=== PATIENT | male | born 1935 | race Caucasian/White ===

== ENCOUNTER 2018-12-24 15:00 | Emergency (ER) | payer MEDICARE, OTHER ==
[~2018-12-24] VITALS: Ht 177.8 cm; Wt 121.6 kg
[~2018-12-24 15:00] MED LIST: ACET325 PO; ALLO100 PO; AMLO10 PO; AMLO5 PO; ATOR20 PO; Alphagan P5 ML BOTHEYES; Apidra Sol100 UNIT/1 SC; Aspirin EC81 MG PO; BRIM.15SO BOTHEYES; CALC.25 PO; CITA20 PO; Colace100 MG PO; DORZOPSO BOTHEYES; INSULANPEN SC; LAVAP17G PO; LORA.5 PO; LORA1 PO; LORA2 PO; LOSA50 PO; Lasix40 MG PO; METO25 PO; OMEP20ER PO; OSEL75CA PO; Omeprazole20 M1 PO; POTA10T PO; RANI150; Tamiflu75 MG PO; Vitamin D2000 UNIT PO; Xalatan2.5 ML BOTHEYES
[2018-12-24 16:33] LABS: BASOPHILS ABSOLUTE AUTO 0.03 K/mm3 (0.00-0.23); BASOPHILS PERCENT AUTO 1 % (0-2); EOSINOPHILS ABSOLUTE AUTO 0.35 K/mm3 (0.00-0.68); EOSINOPHILS PERCENT AUTO 7 % (0-6); Hematocrit 38.5 % (37.0-53.0); Hemoglobin 12.4 g/dL (13.5-17.5); IMMATURE GRAN ABSOLUTE AUTO 0.02 K/mm3 (0.00-0.10); IMMATURE GRAN PERCENT AUTO 0 % (0-1); LYMPHOCYTES ABSOLUTE AUTO 0.88 K/mm3 (0.84-5.20); LYMPHOCYTES PERCENT AUTO 17 % (21-46); MONOCYTES ABSOLUTE AUTO 0.55 K/mm3 (0.16-1.47); MONOCYTES PERCENT AUTO 11 % (4-13); Mean Corpuscular HGB 33.1 pg (26.0-34.0); Mean Corpuscular HGB Conc 32.2 g/dL (31.5-36.5); Mean Corpuscular Volume 103 fL (80-100); Mean Platelet Volume 12.2 fL (9.1-12.4); NEUTROPHILS ABSOLUTE AUTO 3.36 K/mm3 (1.96-9.15); NEUTROPHILS PERCENT AUTO 65 % (41-73); Platelet Count 197 K/mm3 (150-400); RDW Coefficient Variation 14.8 % (11.7-14.2); RDW Standard Deviation 56.6 fL (35.1-46.3); Red Blood Cell Count 3.75 M/mm3 (4.30-5.90); White Blood Cell Count 5.19 K/mm3 (4.00-11.30)
[2018-12-24 17:00] LABS: Alanine Aminotransfer (ALT/SGP 28 U/L (12-78); Albumin, Blood 3.3 g/dL (3.4-5.0); Albumin/Globulin Ratio 0.9 (0.8-1.8); Alk Phos 53 U/L (50-136); Anion Gap 4 mmol/L (6-16); Aspartate Aminotrans (AST/SGOT 21 U/L (12-37); Bilirubin, Total 0.4 mg/dL (0.1-1.0); Blood Urea Nitrogen 28 mg/dL (8-24); Bun/Creatinine Ratio 17.3 (12.0-20.0); CO2, Blood 27 mmol/L (21-32); Calcium, Blood 8.7 mg/dL (8.5-10.1); Chloride, Blood 109 mmol/L (98-108); Creatinine, Blood 1.62 mg/dL (0.60-1.20); Globulin, Blood 3.8 g/dL (2.2-4.0); Glomerular Filtration Rate 43 (60-); Glucose, Blood 180 mg/dL (70-99); Potassium, Blood 4.3 mmol/L (3.5-5.5); Sodium, Blood 140 mmol/L (136-145); Total Protein, Blood 7.1 g/dL (6.4-8.2); Troponin I <0.015 ng/mL (0.000-0.040)
[2018-12-24] MEDS ORDERED: Cheratussin AC118 ML PO (17:53)
[2018-12-24] MEDS ORDERED: Prednisone20 MG PO (17:53)
== END 2018-12-24 18:06 | disposition home or self-care (01) ==
LOC: ER 15:00
PROVIDERS: Physician Assistant
DX: J20.9 Acute bronchitis, unspecified (principal); E11.9 Type 2 diabetes mellitus without complications; I10 Essential (primary) hypertension
CPT/HCPCS: 36415; 71046; 80053; 83880; 84484; 85025; 93005; 93010; 99283-25

== ENCOUNTER 2019-01-01 10:54 | Observation (INO) | payer MEDICARE, OTHER ==
[~2019-01-01] VITALS: Ht 177.8 cm; Wt 128.0 kg
[~2019-01-01 10:54] MED LIST changes: +Cheratussin AC118 ML PO; +Prednisone20 MG PO
[2019-01-01] MEDS ORDERED: VITAMIN D-32000 UNIT PO (11:25)
[2019-01-01] MEDS ORDERED: VITAMIN B-121000 MC2 PO (11:26)
[2019-01-01] MEDS ORDERED: METO50 PO (11:27)
[2019-01-01] MEDS ORDERED: CLON.1 PO (11:29)
[2019-01-01] MEDS ORDERED: NOVOLOG FL100 UNIT/1 SC (11:42)
[2019-01-01] MEDS ORDERED: BASAGLAR K100 UNIT/1 SC (11:43)
[2019-01-01 12:48] LABS: BASOPHILS ABSOLUTE AUTO 0.02 K/mm3 (0.00-0.23); BASOPHILS PERCENT AUTO 0 % (0-2); EOSINOPHILS ABSOLUTE AUTO 0.12 K/mm3 (0.00-0.68); EOSINOPHILS PERCENT AUTO 1 % (0-6); Hematocrit 40.3 % (37.0-53.0); Hemoglobin 13.3 g/dL (13.5-17.5); IMMATURE GRAN ABSOLUTE AUTO 0.05 K/mm3 (0.00-0.10); IMMATURE GRAN PERCENT AUTO 1 % (0-1); LYMPHOCYTES ABSOLUTE AUTO 0.93 K/mm3 (0.84-5.20); LYMPHOCYTES PERCENT AUTO 11 % (21-46); MONOCYTES PERCENT AUTO 8 % (4-13); Mean Corpuscular HGB 32.5 pg (26.0-34.0); Mean Platelet Volume 12.5 fL (9.1-12.4); NEUTROPHILS ABSOLUTE AUTO 6.57 K/mm3 (1.96-9.15); NEUTROPHILS PERCENT AUTO 78 % (41-73); Platelet Count 201 K/mm3 (150-400); RDW Coefficient Variation 14.4 % (11.7-14.2); RDW Standard Deviation 52.1 fL (35.1-46.3); Red Blood Cell Count 4.09 M/mm3 (4.30-5.90); White Blood Cell Count 8.39 K/mm3 (4.00-11.30)
[2019-01-01 12:52] LABS: Mean Corpuscular Volume 99 fL (80-100)
[2019-01-01 13:02] LABS: Calcium, Blood 8.3 mg/dL (8.5-10.1); Creatinine, Blood 1.85 mg/dL (0.60-1.20); Potassium, Blood 3.8 mmol/L (3.5-5.5); Troponin I 0.106 ng/mL (0.000-0.040)
[2019-01-01 13:26] LABS: Source, Urine Clean Catch
[2019-01-01 13:37] LABS: Bilirubin, Urine Neg (Neg); Blood, Urine 1+ (Neg); Glucose Qualitative, Urine Neg (Neg); Ketones, Urine Neg (Neg); Leukocyte Esterase, Urine Neg (Neg); Nitrite, Urine Neg (Neg); Protein, Urine 1+ (Neg); Urobilinogen, Urine NORM (Normal)
[2019-01-01 13:43] LABS: Appearance, Urine Clear (Clear); Color, Urine Yellow (P-Yellow)
[2019-01-01 13:44] LABS: Bacteria Few /hpf; Squamous Epithelial Cells Few /hpf (Few); White Blood Cells, Urine 0-2 /hpf (0-5)
[2019-01-01 15:32] LABS: Uric Acid, Blood 5.6 mg/dL (3.5-7.2)
[2019-01-02 01:41] LABS: BASOPHILS ABSOLUTE AUTO 0.02 K/mm3 (0.00-0.23); BASOPHILS PERCENT AUTO 0 % (0-2); EOSINOPHILS PERCENT AUTO 3 % (0-6); Hematocrit 35.1 % (37.0-53.0); Hemoglobin 11.6 g/dL (13.5-17.5); IMMATURE GRAN ABSOLUTE AUTO 0.03 K/mm3 (0.00-0.10); IMMATURE GRAN PERCENT AUTO 1 % (0-1); LYMPHOCYTES ABSOLUTE AUTO 1.34 K/mm3 (0.84-5.20); LYMPHOCYTES PERCENT AUTO 21 % (21-46); MONOCYTES ABSOLUTE AUTO 0.63 K/mm3 (0.16-1.47); MONOCYTES PERCENT AUTO 10 % (4-13); Mean Corpuscular HGB 33.1 pg (26.0-34.0); Mean Corpuscular Volume 100 fL (80-100); Mean Platelet Volume 12.1 fL (9.1-12.4); NEUTROPHILS ABSOLUTE AUTO 4.19 K/mm3 (1.96-9.15); NEUTROPHILS PERCENT AUTO 65 % (41-73); Platelet Count 180 K/mm3 (150-400); RDW Coefficient Variation 14.4 % (11.7-14.2); RDW Standard Deviation 52.4 fL (35.1-46.3); White Blood Cell Count 6.41 K/mm3 (4.00-11.30)
[2019-01-02 02:00] LABS: Albumin, Blood 2.8 g/dL (3.4-5.0); Albumin/Globulin Ratio 0.8 (0.8-1.8); Bilirubin, Total 0.8 mg/dL (0.1-1.0); Bun/Creatinine Ratio 19.5 (12.0-20.0); Creatinine, Blood 1.85 mg/dL (0.60-1.20); Globulin, Blood 3.3 g/dL (2.2-4.0); Potassium, Blood 3.8 mmol/L (3.5-5.5); Total Protein, Blood 6.1 g/dL (6.4-8.2)
--- NOTE | 2019-01-02 04:21 | NUR ---
PT WAS ADMITTED PREVIOUS SHIFT POST FALL, SEE DOC FLOW SHEETS. ALERT AND ORIENTED TO QUESTIOINS ASKED THIS SHIFT. IVF OF NS BOLUS INFUSED. VSS. MONITORING LABS - TROP LEVEL ELEVATED. MED TELE SINUS RHYTHM WITH PVC'S. HAS BEEN RESTING QUIETLY WITH FEW INTERRUPTIONS. ASYMPTOMATIC. CALL LIGHT IN REACH.
--- NOTE | 2019-01-02 05:05 | NUR ---
NOTED TROP LEVELS TRENDING UPWARD, CALL PLACED TO MD STEVE ORDERED TO WATCH. PT ASYMPTOMATIC.
--- NOTE | 2019-01-02 13:04 | NUR ---
1305 IV REMOVED FOR DISCHARGE. MEDS CALLED INTO PHARMACY OF CHOICE. DISCHARGE INSTRUCTIONS WENT OVER WITH FAMILY AND PT. PATIENT REMAINS SOMEWHAT CONFUSED AND FAMILY AND NURSE CONCERNED WITH PATIENT STILL DRIVING. FAMILY STATED THEY ARE GOING TO TALK WITH PCP REGARDING PTS INCREASED CONFUSION AND CHANGE IN MENTATION. PATIENT ABLE TO AMBULATE WITH USE OF CANE. FAMILY TO TAKE PATIENT HOME. PATIENT TO DISCHARGE AFTER PT.
--- NOTE | 2019-01-02 15:23 | NUR ---
1520 PATIENT ABLE TO BE WHEELED OUT IN BY STAFF. SON HAD TO GO TO [facility]POINT[facility] PRIOR TO COMING TO NURSE PRACTITIONER HOME ASSESSMENTS PATIENT. PAPER WORK WAS DONE PRIOR TO. PATIENT STAYED IN ROOM WHILE WAITING FOR RIDE TO RETURN.
== END 2019-01-02 15:21 | disposition home or self-care (01) ==
LOC: ER 10:54 → MEDS 10:55
PROVIDERS: Emergency Medicine; Nurse Practitioner Acute Care; ADMIT Internal Medicine
DX: G92 Toxic encephalopathy (principal); R79.89 Other specified abnormal findings of blood chemistry; I12.9 Hypertensive chronic kidney disease with stage 1 through stage 4 chronic kidney disease, or unspecified chronic kidney disease; E11.22 Type 2 diabetes mellitus with diabetic chronic kidney disease; N18.3 Chronic kidney disease, stage 3 (moderate); F41.1 Generalized anxiety disorder; J40 Bronchitis, not specified as acute or chronic; Z79.899 Other long term (current) drug therapy; Z79.82 Long term (current) use of aspirin; Z88.8 Allergy status to other drugs, medicaments and biological substances
CPT/HCPCS: 36415; 70450; 71046; 73080; 80048; 80053; 81001; 82550; 82947; 83735; 83880; 84100; 84484; 84550; 85025; 93005; 93010; 93306; 96372; 96372-59; 97162; 97530; 99285-25; G0378; J1644; J1815; J7030

== ENCOUNTER 2020-08-04 21:55 | Emergency (ER) | payer MEDICARE, OTHER ==
[~2020-08-04] VITALS: Ht 175.3 cm; Wt 121.6 kg
[~2020-08-04 21:55] MED LIST changes: +BASAGLAR K100 UNIT/1 SC; +CLON.1 PO; +METO50 PO; +NOVOLOG FL100 UNIT/1 SC; +VITAMIN B-121000 MC2 PO; +VITAMIN D-32000 UNIT PO
[2020-08-04] MEDS ORDERED: VITAMIN D325 MC3 PO (22:25)
[2020-08-04] MEDS ORDERED: CLON.1 PO (22:26)
[2020-08-04] MEDS ORDERED: LORA.5 PO (22:27)
[2020-08-04] MEDS ORDERED: COENZYME Q10100 MG PO (22:27)
[2020-08-04] MEDS ORDERED: FURO80 PO (22:28)
[2020-08-04] MEDS ORDERED: NOVOLOG FL100 UNIT/3 SC (22:29)
[2020-08-04] MEDS ORDERED: BASAGLAR K100 UNIT/1 SC (22:29)
[2020-08-04 22:44] LABS: BASOPHILS ABSOLUTE AUTO 0.02 K/mm3 (0.00-0.23); BASOPHILS PERCENT AUTO 0 % (0-2); EOSINOPHILS ABSOLUTE AUTO 0.19 K/mm3 (0.00-0.68); EOSINOPHILS PERCENT AUTO 4 % (0-6); Hematocrit 37.2 % (37.0-53.0); Hemoglobin 12.7 g/dL (13.5-17.5); IMMATURE GRAN ABSOLUTE AUTO 0.02 K/mm3 (0.00-0.10); IMMATURE GRAN PERCENT AUTO 0 % (0-1); LYMPHOCYTES ABSOLUTE AUTO 0.96 K/mm3 (0.84-5.20); LYMPHOCYTES PERCENT AUTO 19 % (21-46); MONOCYTES ABSOLUTE AUTO 0.36 K/mm3 (0.16-1.47); MONOCYTES PERCENT AUTO 7 % (4-13); Mean Corpuscular HGB 32.8 pg (26.0-34.0); Mean Corpuscular HGB Conc 34.1 g/dL (31.5-36.5); Mean Corpuscular Volume 96 fL (80-100); Mean Platelet Volume 12.9 fL (9.1-12.4); NEUTROPHILS ABSOLUTE AUTO 3.47 K/mm3 (1.96-9.15); NEUTROPHILS PERCENT AUTO 69 % (41-73); Platelet Count 184 K/mm3 (150-400); RDW Coefficient Variation 13.4 % (11.7-14.2); RDW Standard Deviation 47.4 fL (35.1-46.3); Red Blood Cell Count 3.87 M/mm3 (4.30-5.90); White Blood Cell Count 5.02 K/mm3 (4.00-11.30)
[2020-08-04 23:03] LABS: Base Excess Venous 6.2 mmol/L; Bicarbonate Venous 28.9 mmol/L (24.0-30.0); PO2 Venous 93.1 mmHg (38-42); pH Blood Venous 7.39 (7.34-7.37)
[2020-08-04 23:07] LABS: Albumin, Blood 2.9 g/dL (3.4-5.0); Albumin/Globulin Ratio 0.9 (0.8-1.8); Beta-hydroxybutyrate 3.6 mg/dL (0.2-2.8); Bilirubin, Total 0.5 mg/dL (0.1-1.0); Bun/Creatinine Ratio 11.3 (12.0-20.0); Calcium, Blood 8.1 mg/dL (8.5-10.1); Creatinine, Blood 2.21 mg/dL (0.60-1.20); Globulin, Blood 3.3 g/dL (2.2-4.0); Potassium, Blood 3.6 mmol/L (3.5-5.5); Total Protein, Blood 6.2 g/dL (6.4-8.2)
== END 2020-08-05 02:11 | disposition home or self-care (01) ==
LOC: ER 21:55
PROVIDERS: Emergency Medicine
DX: E11.65 Type 2 diabetes mellitus with hyperglycemia (principal); E11.22 Type 2 diabetes mellitus with diabetic chronic kidney disease; N17.9 Acute kidney failure, unspecified; I12.9 Hypertensive chronic kidney disease with stage 1 through stage 4 chronic kidney disease, or unspecified chronic kidney disease; N18.30 Chronic kidney disease, stage 3 unspecified; K21.9 Gastro-esophageal reflux disease without esophagitis; Z79.4 Long term (current) use of insulin; Z79.899 Other long term (current) drug therapy
CPT/HCPCS: 80053; 82010; 82607; 82803; 82947; 84443; 85025; 93005; 93010; 99285-25; J1815; J7030

== ENCOUNTER → 2020-08-14 | Outpatient (CLI) | payer MEDICARE, OTHER ==
[~2020-08-14] MED LIST changes: +COENZYME Q10100 MG PO; +FURO80 PO; +NOVOLOG FL100 UNIT/3 SC; +VITAMIN D325 MC3 PO
== END ==
LOC: LAB EV 15:18 → LAB SHORT 15:18
DX: N39.0 Urinary tract infection, site not specified (principal)
CPT/HCPCS: 87077; 87086; 87186

== ENCOUNTER → 2021-04-01 | Outpatient (CLI) | payer MEDICARE, OTHER ==
[~2021-04-01] MED LIST changes: +ABILIFY MYCITE2 M2 PO; +ALPHAGAN P5 ML BOTHEYES; +CIPR500 PO; +FURO40 PO; -FURO80 PO; +LATA.005SO BOTHEYES; +NYSTATIN15 GM TOP; +ONDA4ODT MM
[2021-04-01 11:15] LABS: Appearance, Urine Clear (Clear); Bilirubin, Urine Neg (Neg); Blood, Urine Neg (Neg); Color, Urine Yellow (P-Yellow); Glucose Qualitative, Urine Neg (Neg); Ketones, Urine Neg (Neg); Leukocyte Esterase, Urine Neg (Neg); Nitrite, Urine Neg (Neg); Protein, Urine 2+ (Neg); Urobilinogen, Urine NORM (Normal); pH, Urine 6.5 (5.0-8.0)
[2021-04-01 11:43] LABS: Bacteria Rare /hpf; Red Blood Cells, Urine 0-2 /hpf (0-2); Squamous Epithelial Cells Rare /hpf (Few); White Blood Cells, Urine 0-2 /hpf (0-5)
== END | disposition home or self-care (01) ==
LOC: LAB SHORT 10:11
PROVIDERS: Family Medicine
DX: N39.0 Urinary tract infection, site not specified (principal)
CPT/HCPCS: 81001

== ENCOUNTER 2021-12-31 09:04 | Emergency (ER) | payer MEDICARE, OTHER ==
[~2021-12-31] VITALS: Ht 170.2 cm; Wt 117.9 kg
[~2021-12-31 09:04] MED LIST changes: -ABILIFY MYCITE2 M2 PO; -ALPHAGAN P5 ML BOTHEYES; -CIPR500 PO; -LATA.005SO BOTHEYES; -NYSTATIN15 GM TOP; -ONDA4ODT MM
[2021-12-31] MEDS ORDERED: ABILIFY MYCITE2 M2 PO (09:25)
[2021-12-31] MEDS ORDERED: COENZYME Q10100 MG PO ×2 (09:26→21:47)
[2021-12-31 10:32] LABS: BASOPHILS ABSOLUTE AUTO 0.02 K/mm3 (0.00-0.23); BASOPHILS PERCENT AUTO 0 % (0-2); EOSINOPHILS PERCENT AUTO 3 % (0-6); Hematocrit 47.6 % (37.0-53.0); Hemoglobin 15.6 g/dL (13.5-17.5); IMMATURE GRAN ABSOLUTE AUTO 0.04 K/mm3 (0.00-0.10); IMMATURE GRAN PERCENT AUTO 0 % (0-1); LYMPHOCYTES ABSOLUTE AUTO 0.48 K/mm3 (0.84-5.20); LYMPHOCYTES PERCENT AUTO 4 % (21-46); MONOCYTES ABSOLUTE AUTO 0.62 K/mm3 (0.16-1.47); MONOCYTES PERCENT AUTO 6 % (4-13); Mean Corpuscular HGB 31.8 pg (26.0-34.0); Mean Corpuscular HGB Conc 32.8 g/dL (31.5-36.5); Mean Corpuscular Volume 97 fL (80-100); Mean Platelet Volume 11.2 fL (9.1-12.4); NEUTROPHILS ABSOLUTE AUTO 9.49 K/mm3 (1.96-9.15); NEUTROPHILS PERCENT AUTO 87 % (41-73); Platelet Count 296 K/mm3 (150-400); RDW Coefficient Variation 13.5 % (11.7-14.2); RDW Standard Deviation 48.6 fL (35.1-46.3); White Blood Cell Count 10.95 K/mm3 (4.00-11.30)
[2021-12-31 10:54] LABS: Albumin, Blood 3.5 g/dL (3.4-5.0); Albumin/Globulin Ratio 0.7 (0.8-1.8); Bilirubin, Total 0.6 mg/dL (0.1-1.0); Creatinine, Blood 1.58 mg/dL (0.60-1.20); Globulin, Blood 4.8 g/dL (2.2-4.0); Potassium, Blood 4.6 mmol/L (3.5-5.5); Total Protein, Blood 8.3 g/dL (6.4-8.2)
[2021-12-31] MEDS ORDERED: ONDA4ODT MM (11:41)
[2021-12-31] MEDS ORDERED: LATA.005SO BOTHEYES (21:29)
[2021-12-31] MEDS ORDERED: NYSTATIN15 GM TOP (21:31)
[2021-12-31] MEDS ORDERED: ALPHAGAN P5 ML BOTHEYES (21:32)
[2021-12-31] MEDS ORDERED: DORZOPSO BOTHEYES (21:33)
[2021-12-31] MEDS ORDERED: POTA10T PO (21:36)
[2021-12-31] MEDS ORDERED: INSULANPEN SC (21:37)
[2021-12-31] MEDS ORDERED: CIPR500 PO (21:50)
== END 2021-12-31 12:30 | disposition home or self-care (01) ==
LOC: ER 09:04
PROVIDERS: Physician Assistant
DX: R11.10 Vomiting, unspecified (principal); I12.9 Hypertensive chronic kidney disease with stage 1 through stage 4 chronic kidney disease, or unspecified chronic kidney disease; E11.22 Type 2 diabetes mellitus with diabetic chronic kidney disease; N18.30 Chronic kidney disease, stage 3 unspecified; K21.9 Gastro-esophageal reflux disease without esophagitis; Z79.4 Long term (current) use of insulin; Z88.5 Allergy status to narcotic agent; Z79.899 Other long term (current) drug therapy; Z79.82 Long term (current) use of aspirin
CPT/HCPCS: 36415; 71045; 80053; 83690; 85025; 93005; 93010; J2405

== ENCOUNTER 2021-12-31 16:36 | Emergency (ER) | payer MEDICARE, OTHER ==
[~2021-12-31] VITALS: Ht 177.8 cm; Wt 131.5 kg
[~2021-12-31 16:36] MED LIST changes: +ABILIFY MYCITE2 M2 PO; +ONDA4ODT MM
[2021-12-31 18:41] LABS: BASOPHILS ABSOLUTE AUTO 0.02 K/mm3 (0.00-0.23); BASOPHILS PERCENT AUTO 0 % (0-2); EOSINOPHILS ABSOLUTE AUTO 0.03 K/mm3 (0.00-0.68); EOSINOPHILS PERCENT AUTO 0 % (0-6); Hematocrit 43.9 % (37.0-53.0); Hemoglobin 14.6 g/dL (13.5-17.5); IMMATURE GRAN ABSOLUTE AUTO 0.04 K/mm3 (0.00-0.10); IMMATURE GRAN PERCENT AUTO 0 % (0-1); LYMPHOCYTES PERCENT AUTO 3 % (21-46); MONOCYTES ABSOLUTE AUTO 0.28 K/mm3 (0.16-1.47); MONOCYTES PERCENT AUTO 3 % (4-13); Mean Corpuscular HGB 32.4 pg (26.0-34.0); Mean Corpuscular HGB Conc 33.3 g/dL (31.5-36.5); Mean Corpuscular Volume 97 fL (80-100); Mean Platelet Volume 11.5 fL (9.1-12.4); NEUTROPHILS ABSOLUTE AUTO 9.42 K/mm3 (1.96-9.15); NEUTROPHILS PERCENT AUTO 93 % (41-73); Platelet Count 279 K/mm3 (150-400); RDW Coefficient Variation 13.9 % (11.7-14.2); RDW Standard Deviation 50.2 fL (35.1-46.3); Red Blood Cell Count 4.51 M/mm3 (4.30-5.90); White Blood Cell Count 10.09 K/mm3 (4.00-11.30)
[2021-12-31 18:55] LABS: Albumin, Blood 3.3 g/dL (3.4-5.0); Albumin/Globulin Ratio 0.7 (0.8-1.8); Bilirubin, Total 0.6 mg/dL (0.1-1.0); Bun/Creatinine Ratio 18.8 (12.0-20.0); Calcium, Blood 8.7 mg/dL (8.5-10.1); Creatinine, Blood 1.76 mg/dL (0.60-1.20); Globulin, Blood 4.5 g/dL (2.2-4.0); Potassium, Blood 4.6 mmol/L (3.5-5.5); Total Protein, Blood 7.8 g/dL (6.4-8.2)
[2021-12-31] MEDS ORDERED: LATA.005SO BOTHEYES (21:29)
[2021-12-31] MEDS ORDERED: NYSTATIN15 GM TOP (21:31)
[2021-12-31] MEDS ORDERED: ALPHAGAN P5 ML BOTHEYES (21:32)
[2021-12-31] MEDS ORDERED: DORZOPSO BOTHEYES (21:33)
[2021-12-31] MEDS ORDERED: POTA10T PO (21:36)
[2021-12-31] MEDS ORDERED: INSULANPEN SC (21:37)
[2021-12-31] MEDS ORDERED: COENZYME Q10100 MG PO (21:47)
[2021-12-31] MEDS ORDERED: CIPR500 PO (21:50)
== END 2022-01-01 00:06 | disposition home or self-care (01) ==
LOC: ER 16:36
PROVIDERS: Emergency Medicine
DX: R11.10 Vomiting, unspecified (principal); K59.00 Constipation, unspecified; F03.90 Unspecified dementia, unspecified severity, without behavioral disturbance, psychotic disturbance, mood disturbance, and anxiety; I12.9 Hypertensive chronic kidney disease with stage 1 through stage 4 chronic kidney disease, or unspecified chronic kidney disease; E11.22 Type 2 diabetes mellitus with diabetic chronic kidney disease; N18.30 Chronic kidney disease, stage 3 unspecified; Z79.4 Long term (current) use of insulin
CPT/HCPCS: 36415; 70491; 74177; 80053; 83605; 83880; 84484; 85025; 96365-59; 99284-25; J0780; J3475; J7030; Q9967

== ENCOUNTER 2022-01-29 11:13 | Emergency (ER) | payer MEDICARE, OTHER ==
[~2022-01-29] VITALS: Ht 177.8 cm; Wt 102.1 kg
[~2022-01-29 11:13] MED LIST changes: +ALPHAGAN P5 ML BOTHEYES; +CIPR500 PO; +LATA.005SO BOTHEYES; +NYSTATIN15 GM TOP
[2022-01-29 11:40] LABS: BASOPHILS ABSOLUTE AUTO 0.03 K/mm3 (0.00-0.23); BASOPHILS PERCENT AUTO 1 % (0-2); EOSINOPHILS ABSOLUTE AUTO 0.32 K/mm3 (0.00-0.68); EOSINOPHILS PERCENT AUTO 5 % (0-6); Hematocrit 39.2 % (37.0-53.0); Hemoglobin 13.2 g/dL (13.5-17.5); IMMATURE GRAN ABSOLUTE AUTO 0.02 K/mm3 (0.00-0.10); IMMATURE GRAN PERCENT AUTO 0 % (0-1); LYMPHOCYTES ABSOLUTE AUTO 1.28 K/mm3 (0.84-5.20); LYMPHOCYTES PERCENT AUTO 21 % (21-46); MONOCYTES ABSOLUTE AUTO 0.56 K/mm3 (0.16-1.47); MONOCYTES PERCENT AUTO 9 % (4-13); Mean Corpuscular HGB 32.4 pg (26.0-34.0); Mean Corpuscular HGB Conc 33.7 g/dL (31.5-36.5); Mean Corpuscular Volume 96 fL (80-100); Mean Platelet Volume 11.3 fL (9.1-12.4); NEUTROPHILS ABSOLUTE AUTO 4.02 K/mm3 (1.96-9.15); NEUTROPHILS PERCENT AUTO 65 % (41-73); Platelet Count 197 K/mm3 (150-400); RDW Standard Deviation 49.6 fL (35.1-46.3); Red Blood Cell Count 4.08 M/mm3 (4.30-5.90); White Blood Cell Count 6.23 K/mm3 (4.00-11.30)
[2022-01-29 12:03] LABS: Albumin, Blood 3.2 g/dL (3.4-5.0); Albumin/Globulin Ratio 0.8 (0.8-1.8); Bilirubin, Total 0.7 mg/dL (0.1-1.0); Bun/Creatinine Ratio 16.9 (12.0-20.0); Calcium, Blood 8.9 mg/dL (8.5-10.1); Creatinine, Blood 1.66 mg/dL (0.60-1.20); Globulin, Blood 4.2 g/dL (2.2-4.0); Potassium, Blood 3.8 mmol/L (3.5-5.5); Total Protein, Blood 7.4 g/dL (6.4-8.2)
== END 2022-01-29 15:45 | disposition home or self-care (01) ==
LOC: ER 11:13
PROVIDERS: Emergency Medicine
DX: E11.65 Type 2 diabetes mellitus with hyperglycemia (principal); I10 Essential (primary) hypertension; Z96.643 Presence of artificial hip joint, bilateral
CPT/HCPCS: 80053; 82947; 85025

== ENCOUNTER → 2022-02-03 | Outpatient (CLI) | payer MEDICARE, OTHER ==
[2022-02-03 10:56] LABS: Appearance, Urine Clear (Clear); Bilirubin, Urine Neg (Neg); Blood, Urine 1+ (Neg); Color, Urine Yellow (P-Yellow); Glucose Qualitative, Urine 2+ (Neg); Ketones, Urine Neg (Neg); Leukocyte Esterase, Urine Neg (Neg); Nitrite, Urine Neg (Neg); Protein, Urine 2+ (Neg); Specific Gravity, Urine 1.015 (1.003-1.022); Urobilinogen, Urine NORM (Normal); pH, Urine 6.5 (5.0-8.0)
[2022-02-03 11:37] LABS: Bacteria Rare /hpf; Red Blood Cells, Urine 0-2 /hpf (0-2); Squamous Epithelial Cells Rare /hpf (Few); White Blood Cells, Urine 0-2 /hpf (0-5)
[2022-02-03 11:38] LABS: Hyaline Casts 0-2 /lpf (0-2)
== END | disposition home or self-care (01) ==
LOC: LAB SHORT 09:00 → LAB 09:00
PROVIDERS: Family Medicine
DX: N39.0 Urinary tract infection, site not specified (principal)
CPT/HCPCS: 81001

== ENCOUNTER 2022-03-08 19:51 | Inpatient (IN) | payer MEDICARE, OTHER ==
[~2022-03-08] VITALS: Ht 177.8 cm; Wt 120.6 kg
[2022-03-08 20:46] LABS: BASOPHILS ABSOLUTE AUTO 0.03 K/mm3 (0.00-0.23); BASOPHILS PERCENT AUTO 0 % (0-2); EOSINOPHILS PERCENT AUTO 0 % (0-6); Hematocrit 40.2 % (37.0-53.0); Hemoglobin 13.1 g/dL (13.5-17.5); IMMATURE GRAN ABSOLUTE AUTO 0.02 K/mm3 (0.00-0.10); IMMATURE GRAN PERCENT AUTO 0 % (0-1); LYMPHOCYTES ABSOLUTE AUTO 0.63 K/mm3 (0.84-5.20); LYMPHOCYTES PERCENT AUTO 9 % (21-46); MONOCYTES ABSOLUTE AUTO 0.68 K/mm3 (0.16-1.47); MONOCYTES PERCENT AUTO 10 % (4-13); Mean Corpuscular HGB 31.9 pg (26.0-34.0); Mean Corpuscular HGB Conc 32.6 g/dL (31.5-36.5); Mean Corpuscular Volume 98 fL (80-100); Mean Platelet Volume 11.3 fL (9.1-12.4); NEUTROPHILS ABSOLUTE AUTO 5.38 K/mm3 (1.96-9.15); NEUTROPHILS PERCENT AUTO 80 % (41-73); Platelet Count 222 K/mm3 (150-400); RDW Coefficient Variation 14.7 % (11.7-14.2); RDW Standard Deviation 53.6 fL (35.1-46.3); Red Blood Cell Count 4.11 M/mm3 (4.30-5.90); White Blood Cell Count 6.74 K/mm3 (4.00-11.30)
[2022-03-08 21:07] LABS: Albumin, Blood 3.1 g/dL (3.4-5.0); Albumin/Globulin Ratio 0.7 (0.8-1.8); Bilirubin, Total 0.6 mg/dL (0.1-1.0); Bun/Creatinine Ratio 17.1 (12.0-20.0); Calcium, Blood 8.6 mg/dL (8.5-10.1); Creatinine, Blood 1.64 mg/dL (0.60-1.20); Globulin, Blood 4.2 g/dL (2.2-4.0); Potassium, Blood 3.7 mmol/L (3.5-5.5); Total Protein, Blood 7.3 g/dL (6.4-8.2)
[2022-03-08 21:23] LABS: Influenza B, PCR NEGATIVE (NEGATIVE); Resp Syncytial Virus, PCR NEGATIVE (NEGATIVE); SARS-Cov-2 (COVID-19) PCR, MMC NEGATIVE (NEGATIVE)
[2022-03-08 22:21] LABS: Influenza A, PCR POSITIVE (NEGATIVE)
[2022-03-08 23:43] LABS: Magnesium, Blood 2.2 mg/dL (1.6-2.4)
[2022-03-09 06:34] LABS: Hematocrit 39.5 % (37.0-53.0); Mean Corpuscular HGB 32.2 pg (26.0-34.0); Mean Corpuscular HGB Conc 32.9 g/dL (31.5-36.5); Mean Corpuscular Volume 98 fL (80-100); Mean Platelet Volume 11.7 fL (9.1-12.4); Platelet Count 211 K/mm3 (150-400); RDW Coefficient Variation 14.9 % (11.7-14.2); RDW Standard Deviation 54.2 fL (35.1-46.3); Red Blood Cell Count 4.04 M/mm3 (4.30-5.90); White Blood Cell Count 8.57 K/mm3 (4.00-11.30)
--- NOTE | 2022-03-09 06:46 | NUR ---
SHIFT SUMMARY *NOTE IS LATE DUE TO DOWNTIME* RECEIVED PT FROM ER TO PCU 20 @ 0330 THIS AM. PT WAS FAILRY LETHARGIC, BUT RESPONDS TO BOTH VERBAL AND TACTILE STIMULI. ORIENTATED TO SELF, BUT DOES NOT KNOW DATE, TIME, OR WHER HE IS. MAINTAINS SPO2 >90% ON 3L VIA NC. DESATS VERY QUICKLY WITH ANY SORT OF MOVEMENT OR WHEN LAYING FLAT. CARIDIAC CALL, AFIB WITH A RATE OF 110-130'S WITH CARDIZEM RUNNING ORDERD PER EMAR. NO CP OR PRESSURE REPORTED BY THE PT. BP STABLE. PT IS INCONITENT OF URINE, BUT WITH LITTLE OUTPUT THIS SHIFT. NADN, VSS T/O THE SHIFT
[2022-03-09 07:16] LABS: Albumin, Blood 2.8 g/dL (3.4-5.0); Albumin/Globulin Ratio 0.7 (0.8-1.8); Bilirubin, Total 0.5 mg/dL (0.1-1.0); Bun/Creatinine Ratio 19.4 (12.0-20.0); Calcium, Blood 8.3 mg/dL (8.5-10.1); Creatinine, Blood 1.65 mg/dL (0.60-1.20); Globulin, Blood 4.1 g/dL (2.2-4.0); Potassium, Blood 4.2 mmol/L (3.5-5.5); Total Protein, Blood 6.9 g/dL (6.4-8.2)
[2022-03-09 07:39] LABS: BAND PERCENT MAN 8 % (0-8); BASOPHILS PERCENT MAN 0 % (0-2); EOSINOPHILS PERCENT MAN 0 % (0-6); LYMPHOCYTES ABSOLUTE MAN 0.42 K/mm3 (0.84-5.20); LYMPHOCYTES PERCENT MAN 5 % (21-46); MONOCYTES ABSOLUTE MAN 0.34 K/mm3 (0.16-1.47); MONOCYTES PERCENT MAN 4 % (4-13); NEUTROPHILS ABSOLUTE MAN 7.79 K/mm3 (1.96-9.15); SEG NEUTROPHILS PERCENT MAN 83 % (41-73); TOTAL CELLS COUNTED 100
[2022-03-09] MEDS ORDERED: NOVOLOG FL100 UNIT/3 SC (10:11)
[2022-03-09] MEDS ORDERED: MIRALAX17 GM PO (10:15)
[2022-03-09] MEDS ORDERED: Amlodipine Bes2.5 MG PO (10:17)
[2022-03-09] MEDS ORDERED: ACET325 PO (10:18)
[2022-03-09] MEDS ORDERED: BISA10S PR (10:19)
[2022-03-09] MEDS ORDERED: FURO40 PO (10:49)
[2022-03-09 11:31] LABS: Source, Urine Straight Cath
[2022-03-09 11:54] LABS: Appearance, Urine Clear (Clear); Bilirubin, Urine Neg (Neg); Blood, Urine 3+ (Neg); Color, Urine Yellow (P-Yellow); Glucose Qualitative, Urine 1+ (Neg); Ketones, Urine 2+ (Neg); Leukocyte Esterase, Urine Neg (Neg); Nitrite, Urine Neg (Neg); Protein, Urine 3+ (Neg); Urobilinogen, Urine NORM (Normal)
[2022-03-09 12:23] LABS: White Blood Cells, Urine 0-2 /hpf (0-5)
[2022-03-09 12:24] LABS: Squamous Epithelial Cells Not Seen /hpf (Few)
[2022-03-09 12:25] LABS: Bacteria Many /hpf; Mucus Light (0-Heavy)
--- NOTE | 2022-03-09 12:43 | NUR ---
AM NOTE: PATIENT WAKES TO VERBAL/TOUCH. ABLE TO TELL ME HIS NAME AND . DISCUSSES FAMILY AND TALKS ABOUT ALF. NOT AWARE OF CURRENT SITUATION OR PLACE. DENIES N/T. FOLLOWING COMMANDS. OVERALL WEAK. PERRLA. SPEECH THERAPY IN, SEE ORDERS. ON 3L NASAL CANNULA SATING MID-HIGH 90'S. LUNGS SOUNDING COARSE. FREQUENT DRY COUGH. INTERMIT WHEEZING WITH MOVEMENTS AND TALKING. BREATHING TREATMENTS NEEDED. TELE SHOWING AFIB WITH HR 110-140'S. BP STABLE. CARDIZEM DRIP INFUSING. UPON START OF SHIFT CARDIZEM DRIP INFUSING AT 20 MG/HR. PPP. DENIES CHEST PAIN/PRESSURE/PALPITATIONS. 6 AND 5 BEAT RUN OF VTACH THIS AM, DR. PATRICIO NOTIFIED. MED REC COMPLETED AND ACCURATE PER [facility] REC[facility]DS. SEE FAXED MED REC IN CHART. DR. PATRICIO NOTIFIED OF COMPLETED MED REC. PO METORPOLOL GIVEN THIS AM. EATING WNL PER SPEECH THERAPY ORDERS. MEDS CRUSHED IN APPLESAUCE. LOPEZ CATH PLACED AND DRAINING CLEAR/YELLOW URINE TO GRAVITY. SLIGHTLY SWOLLEN SCROTUM. RED ABDOMINAL FOLDS, CLEANED AND POWDER APPLIED. DATA LEAD IN TO ASSESS SKIN. STAGE 1 PERSSURE ULCER ON COCCYX/BILATERAL GLUTEAL FOLDS. Q2 TURNING IN PLACE. SEE CHART FOR PICTURES BY WOUND RN. NS INFUSING X1 BAG. ORAL CARE Q4. ACHS BLOOD SUGARS. CALL PLACED TO LORENZO, PT DAUGHTER AND GIVEN UPDATE. PER LORENZO PATIENT HAS DEMENTIA AND OFTEN SLEEPS MOST OF THE DAY. SHE THINKS THE AFIB IS NEW FOR THE PATIENT AND TELLS ME THE ALF HAS HAD A HARD TIME CONTROLLING BLOOD SUGARS. CALL LIGHT IN REACH. BED ALARM IN PLACE.
--- NOTE | 2022-03-09 13:17 | NUR ---
CALL PLACED TO DR. PATRICIO TO UPDATE ON PATIENT HR. HR AVERAGING 110-130'S. TOUCHING UP TO 140'S AT TIMES. CARDIZEM GTT REMAINS AT 15 MG/HR. ORDERS FOR ADDITIONAL 25 MG PO METOPROLOL SUCCINATE NOW X1 TO BE GIVEN. ORDERS IN PLACE. DAUGHTER IN-LAW TRISTIAN AT BEDSIDE.
--- NOTE | 2022-03-09 16:15 | NUR ---
UPDATE: PRE-DINNER BLOOD GLUCOSE 410. CALL PLACED TO DR. PATRICIO TO UPDATE. UPGRADED HUMALOG TO MEDIUM CORRECTION SCALE AND ORDERS TO COVER 410 BLOOD SUGAR PER MEDIUM SCALE. ALSO ORDERS FOR THIS RN TO ORDER PATIENT HOME LONG ACTING INSULIN PER HIS HOME SCHEDULE. ORDERS IN PLACE. UPDATED DR. PATRICIO ON HR AND CARDIZEM GTT AT 5 MG/HR.
--- NOTE | 2022-03-09 18:00 | NUR ---
SHIFT SUMMARY: PATIENT REMAINS PLEASENT AND HAS EPISODES OF INTERMIT CONFUSION. ABLE TO REORIENT. Q2 TURNING AND ROM EXERCISES PERFORMED WITH THIS RN. REMAINS ON 2-3L NASAL CANNULA SATING MID 90'S. LUNGS CONTINUE TO SOUND COARSE/DIM WITH INTERMIT WHEEZING. FREQUENT DRY COUGH. PRN COUGH MEDS ORDERED, ALTHOUGH PATIENT DENIES NEED AT THIS TIME. PRN BREATHING TREATMENTS. TELE CONTINUES TO SHOW AFIB WITH HR 80-120'S DEPENDING ON ACTIVITY. CARDIZEM CONTINUES AT 5 MG/HR. BP STABLE. TRENDING DR. SHENG MINER UPDATED ON RESULTS. CONTINUES TO DENY CHEST PAIN/PRESSURE. EATING SMALL AMOUNTS WITH SUPERVISION. NO SWALLOWING ISSUES NOTED. PATIENT TENDS TO START COUGHING WITH MOVEMENTS AND TURNS. ENCOURAGED TO EAT VERY SLOWLY AND TAKE SMALL BITES. ASP PRECAUTIONS. MEPILEX PLACED ON COCCYX IN ADDITION TO Q2 TURNING. PATIENT EDCUATED ON PRESSURE ULCER PREVENTION. GROIN/ABDOMINAL FOLDS CLEANED AND POWDER APPLIED NEEDED. LOPEZ CATH REMAINS IN PLACE DRAINING CLEAR/YELLOW URINE TO GRAVITY. PINK HEEL PROTECTORS IN PLACE. ACHS BLOOD SUGARS. TEMP WNL THROUGHOUT SHIFT. DAUGHTER LORENZO UPDATED THROUGHOUT SHIFT. CALL LIGHT IN REACH. WILL REPORT OFF TO ONCOMING RN.
--- NOTE | 2022-03-09 19:53 | NUR ---
CALL TO PHYSICIAN CALL TO NOTIFY PHYSICIAN THAT HS CBG CHECK RESULTED WITH CBG OF 398. ORDERS PLACE FOR ADDITIONAL 5 UNITS OF HUMALOG AND TO RECHECK CBG 2hr AFTER ADMINISTERING INSULIN.
--- NOTE | 2022-03-09 22:31 | NUR ---
UPDATE PHYSICIAN CALL TO UPDATE PHYSICIAN THAT CBG RESULT WAS 356 AFTER 10units OF HUMALOG. ORDERS PLACED FOR AN ADDITIONAL 10units AND THAT CBG WILL BE RECHECKED WITH MORNING LABS.
--- NOTE | 2022-03-10 05:06 | NUR ---
SHIFT SUMMARY PT A&O TO SELF AND FAMILY, PT COMMUNICATES NEEDS APPROPRIATELY WHEN ASKED. VSS, BP STABLE, SpO2> 92% ON 2L VIA NC, DENIES SOB. AFIB 80-130's, CARDIZEM gtt TITRATED BETWEEN 5-15mls/hr. CARDIZEM gtt IS CURRENTLY ON 15mls/hr, HR AFIB 90's-120. DENIES CP/PRESSURE. LOPEZ CATHETER IN PLCACE, PATENT, DRAINING TO GRAVITY, CATH CARE PROVIDED. Q2 TURNS PROVIDED. REPORT GIVEN THAT PT INCONTINENT OF BOWEL, PT WITHOUT BM THIS SHIFT. PT TOLERATED SIPS OF WATER. PT VERY WHEEZY AND WITH DRY COUGH OCCATIONALLY, THIS RN NOTIFIED RT TO REQUEST A BREATHING TREATMENT. CBG ELEVATED, SEE PREVIOUS NTOES. NO ACUTE EVENTS THIS SHIFT, WILL REPORT TO ON COMING RN.
[2022-03-10 06:31] LABS: BASOPHILS PERCENT AUTO 0 % (0-2); EOSINOPHILS PERCENT AUTO 0 % (0-6); Hematocrit 37.4 % (37.0-53.0); Hemoglobin 12.4 g/dL (13.5-17.5); IMMATURE GRAN ABSOLUTE AUTO 0.03 K/mm3 (0.00-0.10); IMMATURE GRAN PERCENT AUTO 0 % (0-1); LYMPHOCYTES PERCENT AUTO 5 % (21-46); MONOCYTES ABSOLUTE AUTO 0.24 K/mm3 (0.16-1.47); MONOCYTES PERCENT AUTO 3 % (4-13); Mean Corpuscular HGB Conc 33.2 g/dL (31.5-36.5); Mean Corpuscular Volume 96 fL (80-100); Mean Platelet Volume 11.3 fL (9.1-12.4); NEUTROPHILS ABSOLUTE AUTO 6.97 K/mm3 (1.96-9.15); NEUTROPHILS PERCENT AUTO 91 % (41-73); Platelet Count 214 K/mm3 (150-400); RDW Coefficient Variation 14.6 % (11.7-14.2); RDW Standard Deviation 51.6 fL (35.1-46.3); Red Blood Cell Count 3.88 M/mm3 (4.30-5.90); White Blood Cell Count 7.64 K/mm3 (4.00-11.30)
[2022-03-10 06:51] LABS: Albumin, Blood 2.8 g/dL (3.4-5.0); Albumin/Globulin Ratio 0.8 (0.8-1.8); Bilirubin, Total 0.5 mg/dL (0.1-1.0); Bun/Creatinine Ratio 28.9 (12.0-20.0); Calcium, Blood 8.5 mg/dL (8.5-10.1); Creatinine, Blood 1.73 mg/dL (0.60-1.20); Globulin, Blood 3.7 g/dL (2.2-4.0); Potassium, Blood 4.1 mmol/L (3.5-5.5); Total Protein, Blood 6.5 g/dL (6.4-8.2)
--- NOTE | 2022-03-10 09:06 | NUR ---
AM NOTE: PATIENT ALERT TO SELF, FAMILY AND PLACE. DENIES N/T. PERRLA. OVERALL WEAKNESS NOTED. Q2 TURNING. FOLLOWING COMMANDS. ON 2-3L NASAL CANNULA SATING MID 90'S. LUNGS SOUNDING MORE CLEAR COMPARED TO YESTERDAY DAY SHIFT. FREQUENT DRY COUGH WITH WHEEZING. PRN BREATHING TREATMENTS. TELE CONTINUES TO SHOW AFIB WITH HR 90-130'S. CARDIZEM DRIP INFUSING AT 10 MG/HR. PO METOPROLOL GIVEN THIS AM. PPP. EDEMA IN BLE/BUE. DENIES CHEST PAIN/PRESSURE/PALPITATIONS. DENIES ABDOMINAL PAIN/NAUSEA. BOWEL TONES PRESENT. LOPEZ CATH IN PLACE DRAINING CLEAR/YELLOW URINE TO GRAVITY. CATH CARE COMPLETED THIS AM. URINE CULTURE PENDING. ATTENDS IN PLACE. MEPILEX ON COCCYX WITH Q2 TURNS. PATIENT EDUCATED ON PRESSURE ULCER PREVENTION. GROIN/ABDOMINAL FOLDS RED, CLEANED AND POWDER APPLIED. SPEECH THERAPY IN TO SEE PATIENT THIS AM, DIET UPGRADED. TROPS TRENDING DOWN. ACHS BLOOD SUGARS. Q4 ORAL CARE. CALL LIGHT IN REACH.
--- NOTE | 2022-03-10 11:22 | NUR ---
AFTERNOON BLOOD SUGAR 451. DR. PATRICIO CALLED TO UPDATE. ORDERS TO CHANGE ACHS INSULIN LISPRO TO HIGH CORRECTION SCALE AND GIVE AFTERNOON INSULIN ACCORDING TO SCALE HIGH SCALE. ADDITIONAL ORDERS TO CHANGE IV SOLUMEDROL TO [address] IN [address].
--- NOTE | 2022-03-10 11:59 | NUR ---
ECHO BEING COMPLETED AT THIS TIME. DAUGHTER LORENZO CALLED AND UPDATED.
--- NOTE | 2022-03-10 12:29 | NUR ---
Echocardiogram completed.
--- NOTE | 2022-03-10 16:22 | NUR ---
EVENING BLOOD SUGAR 363. DR. PATRICIO NOTIFIED. ORDERS TO GIVE 15 UNITS INSULIN LISPRO PER HIGH SLIDING SCALE AND ADDITIONAL 10 UNITS OF LONG ACTING INSULIN X1 DOSE NOW. ADDITIONAL 10 UNITS OF INSULIN GLARGINE IN PLACE.
--- NOTE | 2022-03-10 17:11 | NUR ---
SHIFT SUMMARY: NO CHANGES TO NEURO. PATIENT MORE UPBEAT AND TALKATIVE THIS SHIFT COMPARED TO YESTERDAY. VERY PLEASENT AND COOPERATIVE WITH CARES. UP TO SIDE OF BED FOR EXERCISE THROUGHOUT SHIFT. PHYSICAL THERAPY IN TO SEE PATIENT. BED BATH COMPLETED TODAY. Q2 TURNING. REMAINS ON 2-3L NASAL CANNULA SATING MID 90'S. AFIB BETTER RATE CONTROL WITH PO METOPROLOL, CARDIZEM GTT CONTINUES AT 5MG/HR AT THIS TIME. BP STABLE. CONTINUES TO DENY CHEST PAIN/PRESSURE. EATING WNL. BLOOD SUGARS ELEVATED THIS SHIFT, SEE PREVIOUS NOTES ON UPDATES. CALL LIGHT IN REACH. DINA UPDATED THIS SHIFT. WILL CONTINUE TO MONITOR AND REPORT OFF TO ONCOMING RN.
[2022-03-11 03:50] LABS: BASOPHILS ABSOLUTE AUTO 0.01 K/mm3 (0.00-0.23); BASOPHILS PERCENT AUTO 0 % (0-2); EOSINOPHILS ABSOLUTE AUTO 0.01 K/mm3 (0.00-0.68); EOSINOPHILS PERCENT AUTO 0 % (0-6); Hematocrit 37.1 % (37.0-53.0); Hemoglobin 12.5 g/dL (13.5-17.5); IMMATURE GRAN ABSOLUTE AUTO 0.04 K/mm3 (0.00-0.10); IMMATURE GRAN PERCENT AUTO 0 % (0-1); LYMPHOCYTES ABSOLUTE AUTO 0.85 K/mm3 (0.84-5.20); LYMPHOCYTES PERCENT AUTO 8 % (21-46); MONOCYTES ABSOLUTE AUTO 0.34 K/mm3 (0.16-1.47); MONOCYTES PERCENT AUTO 3 % (4-13); Mean Corpuscular HGB 32.1 pg (26.0-34.0); Mean Corpuscular HGB Conc 33.7 g/dL (31.5-36.5); Mean Corpuscular Volume 95 fL (80-100); Mean Platelet Volume 11.5 fL (9.1-12.4); NEUTROPHILS ABSOLUTE AUTO 9.94 K/mm3 (1.96-9.15); NEUTROPHILS PERCENT AUTO 89 % (41-73); Platelet Count 236 K/mm3 (150-400); RDW Coefficient Variation 14.4 % (11.7-14.2); RDW Standard Deviation 50.4 fL (35.1-46.3); Red Blood Cell Count 3.89 M/mm3 (4.30-5.90); White Blood Cell Count 11.19 K/mm3 (4.00-11.30)
[2022-03-11 04:12] LABS: Albumin, Blood 2.7 g/dL (3.4-5.0); Albumin/Globulin Ratio 0.7 (0.8-1.8); Bilirubin, Total 0.5 mg/dL (0.1-1.0); Bun/Creatinine Ratio 29.8 (12.0-20.0); Calcium, Blood 8.4 mg/dL (8.5-10.1); Creatinine, Blood 1.81 mg/dL (0.60-1.20); Globulin, Blood 3.9 g/dL (2.2-4.0); Potassium, Blood 4.1 mmol/L (3.5-5.5); Total Protein, Blood 6.6 g/dL (6.4-8.2)
--- NOTE | 2022-03-11 05:03 | NUR ---
SHIFT SUMMARY/CALL TO PHYSICIAN PT A&O TO SELF AND FAMILY. PT IS MORE ALERT AND TALKATIVE THIS SHIFT, PRESENTING VERY CONFUSED BUT PLEASANT. PT COMMUNICATES NEEDS WHEN ASKED. PT TRYING TO REMOVE TELE THROUGHOUT SHIFT, PULLED OUT IV, AND ONCE TRIED REMOVING LOPEZ CATHETER AT START OF SHIFT. VSS, BP STABLE, SpO2> 92% ON RA, DENIES SOB. AFIB 80-130's TOUCHING INTO 150's AT TIMES, CARDIZEM gtt TITRATED BETWEEN 5-20mls/hr. CARDIZEM gtt IS CURRENTLY ON 20mls/hr, HR AFIB 90's-120. DENIES CP/PRESSURE. LOPEZ CATHETER IN PLCACE, PATENT, DRAINING TO GRAVITY, CATH CARE PROVIDED. Q2 TURNS PROVIDED. REPORT GIVEN THAT PT INCONTINENT OF BOWEL, PT WITHOUT BM THIS SHIFT. PT TOLERATING THIN LIQUIDS WITHOUT A STRAW, PILLS WHOLE IN SUGAR FREE PUDDING. PT OCCASIONALLY VERY WHEEZY AND WITH DRY COUGH, THIS RN NOTIFIED RT TO REQUEST A BREATHING TREATMENT. CBG ELEVATED, CALL TO PHYSICIAN, ORDERS PLACE FOR ADDITIONAL DOSE OF HUMALOG. NO OTHER EVENTS THIS SHIFT, WILL REPORT TO ON COMING RN. CALL TO PHYSICIAN TO NOTIFY THAT CARDIZEM gtt HAS BEEN AT 20mls/hr FOR 1hr AND PT IS SUSTAINGING 110-130's, TOUCHING INTO 150's AT TIMES, ORDERS PLACED.
--- NOTE | 2022-03-11 10:57 | NUR ---
CARE ASSUMPTION THIS RN ASSUMED CARE AT 0700 FROM [facility]. VSS. TELE AFIB 111S WITH CARDIZEM DRIP AT 20. PATIENT HEART SUSTAINING BELOW 100, AND CARDIZEM DRIP AT 5. SEE EMAR FOR MEDICATION CHANGES THIS AM TO HELP WITH RATE CONTROL. PATIENT IS ALERT, ORIENTED TO SELF PERSON AND PLACE. PATIENT IS PLEASANTLY CONFUSED. PATIENT ATTEMPTING TO GET OUT OF BED SO BED ALARM ON AND BED IN LOWEST POSITION. EDUCATED ON USE OF CALL LIGHT AND WHAT BUTTON TO PUSH. PATIENT LUNG SOUNDS CLEAR AND DIM. ABD IS ACTIVE NONTENDER. SKIN HAS SCATTERED BRUSING THROUGHOUT AND SKIN TEAR BY HIS IV ON HIS LEFT FOREARM. PATIENT HAS REDDNESS TO GROIN FOLDS AND PANNUS, SITES CLEANED CREAM AND POWDER APPLIED. PATIENT HAS LOPEZ CATH DRAINING WITH GRAVITY, CLEAR YELLOW. SEE SHIFT ASSESSMENT FOR FURTHER DETAILS. PATIENT HAD A COMPLETE BED BATH AND LINEN CHANGE. PATINT REPOSITIONING Q2 HR. ORAL CARE DONE THIS AM. PATIENT TAKES MEDICATIONS WITH SF PUDDING OR APPLESAUCE. SPEECH BY THIS MORNING AND CHANGED DIET TO MECHANICAL SOFT PER PATIENT REQUEST, OTHERWISE NO CHANGES. MD BALDERAS BY THIS AM AND SPOKE WITH PATIENT ABOUT PLAN OF CARE. PLAN OF CARE IS UPDATED. CALL LIGHT WITHIN REACH AND BED IN LOWEST POSITION WITH BED ALARM ON. WILL CONTINUE TO MONITOR AND PROVIDE CARE.
--- NOTE | 2022-03-11 17:01 | NUR ---
SHIFT SUMMARY PATIENT NEURO REMAINS THE SAME. PATIENT HAS HAD HALLUNCINATIONS OFF AND ON, SUCH SEEING HIS MOTHER, OR THINKING ITEMS ARE DIFFERENT ITEMS IN THE DISTANCE IN HIS ROOM. AFTER SPEAKING WITH HIS DAUGHTER KATE, THIS IS NORMAL FOR HIM TO HAVE HALLUNCINATIONS OFF AND ON. THE DAUGHTER STATED THEY (FAMILY) CALLS THEM "DREAMS". PATIENT WORKED WITH PHYSICAL THERAPY TODAY, SEE NOTE. PLAN IS FOR PATIENT TO GO TO A SENIOR CARE FACILITY WHEN IT IS SAFE TO DISCHARGE. PATIENT HAS BEEN OFF OF CARDIZEM SINCE THIS AM. HEART RATE SUSTAINING IN THE 90S TO 110, AND WILL HIT 120 WITH REPOSITIONING AND THEN DECREASE BACK TO 90S. NO ACUTE CHANGES THIS SHIFT. REPOSITION Q2 AND PROVIDED ORAL CARE PER SPEECH ORDERS. CALL LIGHT WITHIN REACH AND BED ALARM ON AND BED IN LOWEST POSITION. WILL CONTINUE TO MONITOR AND PROVIDE CARE UNTIL HAND OFF WITH COMPENSATION ANALYST.
--- NOTE | 2022-03-12 04:58 | NUR ---
SHIFT SUMMARY: PLEASENTLY CONFUSED, ORIENTED TO SELF ONLY. PT PULLING AT LINES AND ATTEMPTING TO GET OUT OF BED. NEEDS FREQUENT REORIENTING WHEN AWAKE. ABLE TO ENCOURAGE PT TO SLEEP BY LOWERING LIGHTS, PULLING CURTAIN, AND PUTTING MUSIC ON. REPOSITIONED Q2-3HRS. PT WAKES BRIEFLY FOR REPOSITIONING BUT RETURNS TO SLEEP. HR SLOWLY INCREASING THROUGHOUT NIGHT, MAINTAINING IN 100'S WITH OCCASIONAL INCREASES TO 120'S AND DECREASES TO 90'S. RHYTHM REMAINS A-FIB. PLACE ON 2 LPM DUE TO PT OBSERVED HOLDING HIS BREATH WHEN SLEEPING, DESATURATIONS FOR SEVERAL SECONDS INTO 60'S BEFORE INCREASING TO 90'S AGAIN. O2 SATS MAINTAINED AFTER PLACING ON 02. WHEN AWAKE PT O2 SATS IN HIGH 90'S.
[2022-03-12 05:10] LABS: BASOPHILS ABSOLUTE AUTO 0.01 K/mm3 (0.00-0.23); BASOPHILS PERCENT AUTO 0 % (0-2); EOSINOPHILS PERCENT AUTO 0 % (0-6); Hematocrit 38.9 % (37.0-53.0); Hemoglobin 12.8 g/dL (13.5-17.5); IMMATURE GRAN ABSOLUTE AUTO 0.06 K/mm3 (0.00-0.10); IMMATURE GRAN PERCENT AUTO 1 % (0-1); LYMPHOCYTES ABSOLUTE AUTO 0.58 K/mm3 (0.84-5.20); LYMPHOCYTES PERCENT AUTO 8 % (21-46); MONOCYTES PERCENT AUTO 3 % (4-13); Mean Corpuscular HGB 31.4 pg (26.0-34.0); Mean Corpuscular HGB Conc 32.9 g/dL (31.5-36.5); Mean Corpuscular Volume 95 fL (80-100); NEUTROPHILS ABSOLUTE AUTO 6.72 K/mm3 (1.96-9.15); NEUTROPHILS PERCENT AUTO 89 % (41-73); Platelet Count 221 K/mm3 (150-400); RDW Coefficient Variation 14.3 % (11.7-14.2); Red Blood Cell Count 4.08 M/mm3 (4.30-5.90); White Blood Cell Count 7.57 K/mm3 (4.00-11.30)
[2022-03-12 05:31] LABS: Albumin, Blood 2.6 g/dL (3.4-5.0); Albumin/Globulin Ratio 0.7 (0.8-1.8); Bilirubin, Total 0.8 mg/dL (0.1-1.0); Bun/Creatinine Ratio 36.9 (12.0-20.0); Calcium, Blood 8.5 mg/dL (8.5-10.1); Creatinine, Blood 1.6 mg/dL (0.60-1.20); Globulin, Blood 3.5 g/dL (2.2-4.0); Total Protein, Blood 6.1 g/dL (6.4-8.2)
[2022-03-12] MEDS ORDERED: METO100ER PO (15:52)
[2022-03-12] MEDS ORDERED: XARELTO20 MG PO (15:52)
[2022-03-12] MEDS ORDERED: Tessalon200 MG PO (15:53)
--- NOTE | 2022-03-12 16:30 | NUR ---
UPDATE PT CONTINUES TO BE CONFUSED. VS STABLE. HR HAS BEEN AFIB 90-110'S. O2 SATS REMAIN ABOVE 90% ON RA. PT DENIES ANY PAIN. PLAN FOR PT TO DISCHARGE TO [facility] THIS EVENING. REPORT HAS BEEN GIVEN TO NURSE AT FACILITY. FAMILY CALLED AND UPDATED. TRANSPORT TO BE HERE AT 1830 TO TAKE PT BY WHEELCHAIR.
[2022-03-12 17:21] LABS: SARS-Cov-2 (COVID-19) PCR, MMC NEGATIVE (NEGATIVE)
== END 2022-03-12 19:40 | DRG 193 ==
LOC: ER 19:51 → ERHOLD 22:58 → PCU 22:58
PROVIDERS: Emergency Medicine; Family Medicine; Internal Medicine; ADMIT Internal Medicine
DX: J10.01 Influenza due to other identified influenza virus with the same other identified influenza virus pneumonia (principal); G93.41 Metabolic encephalopathy; J96.01 Acute respiratory failure with hypoxia; I48.21 Permanent atrial fibrillation; I24.8 Other forms of acute ischemic heart disease; F41.1 Generalized anxiety disorder; Z20.822 Contact with and (suspected) exposure to COVID-19; M10.9 Gout, unspecified; N18.30 Chronic kidney disease, stage 3 unspecified; K21.9 Gastro-esophageal reflux disease without esophagitis; F03.90 Unspecified dementia, unspecified severity, without behavioral disturbance, psychotic disturbance, mood disturbance, and anxiety; E11.65 Type 2 diabetes mellitus with hyperglycemia; E11.22 Type 2 diabetes mellitus with diabetic chronic kidney disease; Z96.643 Presence of artificial hip joint, bilateral; Z90.49 Acquired absence of other specified parts of digestive tract; Z98.890 Other specified postprocedural states; Z79.4 Long term (current) use of insulin; Z79.82 Long term (current) use of aspirin; Z79.899 Other long term (current) drug therapy
CPT/HCPCS: 0241U; 36415; 51703; 71045; 80053; 81001; 82947; 83605; 83735; 83880; 84484; 85025; 87086; 92526; 92610; 93005; 93010; 93306; 94640; 94664; 94760; 94762; 96374; 96376; 97110; 97162; 97530; 99285-25; A9270; J1650; J1815; J2920; J2930; J3480; J7030; U0004

== ENCOUNTER → 2022-11-18 | Outpatient (CLI) | payer MEDICARE ==
[~2022-11-18] MED LIST changes: +Amlodipine Bes2.5 MG PO; +BISA10S PR; +METO100ER PO; +MIRALAX17 GM PO; +Tessalon200 MG PO; +XARELTO20 MG PO
[2022-11-18 17:26] LABS: Creatinine, Urine Random 46.2 mg/dL (27.00-270.00); Microalb/Creat Ratio UR, Rand 94.156 mg/g (0.000-30.000); Microalbumin, Random Urine 43.5 mg/L (0.000-20.000)
== END ==
LOC: LAB SHORT 14:50 → LAB 14:50
PROVIDERS: Family Medicine
DX: I10 Essential (primary) hypertension (principal)
CPT/HCPCS: 82043; 82570

== ENCOUNTER → 2022-12-15 | Outpatient (CLI) | payer MEDICARE | END | disposition home or self-care (01) | LOC: LAB 11:13 → LAB SHORT 11:13 | DX: N39.0 Urinary tract infection, site not specified (principal) | CPT/HCPCS: 87077; 87086; 87186 ==

== ENCOUNTER 2023-01-14 08:15 | Emergency (ER) | payer MEDICARE ==
[~2023-01-14] VITALS: Ht 177.8 cm; Wt 109.8 kg
[2023-01-14 08:45] LABS: BASOPHILS ABSOLUTE AUTO 0.02 K/mm3 (0.00-0.23); BASOPHILS PERCENT AUTO 0 % (0-2); EOSINOPHILS PERCENT AUTO 1 % (0-6); Hematocrit 37.2 % (37.0-53.0); Hemoglobin 12.1 g/dL (13.5-17.5); IMMATURE GRAN ABSOLUTE AUTO 0.02 K/mm3 (0.00-0.10); IMMATURE GRAN PERCENT AUTO 0 % (0-1); LYMPHOCYTES ABSOLUTE AUTO 1.03 K/mm3 (0.84-5.20); LYMPHOCYTES PERCENT AUTO 15 % (21-46); MONOCYTES ABSOLUTE AUTO 0.34 K/mm3 (0.16-1.47); MONOCYTES PERCENT AUTO 5 % (4-13); Mean Corpuscular HGB 31.4 pg (26.0-34.0); Mean Corpuscular HGB Conc 32.5 g/dL (31.5-36.5); Mean Corpuscular Volume 97 fL (80-100); Mean Platelet Volume 11.8 fL (9.1-12.4); NEUTROPHILS ABSOLUTE AUTO 5.55 K/mm3 (1.96-9.15); NEUTROPHILS PERCENT AUTO 79 % (41-73); Platelet Count 213 K/mm3 (150-400); RDW Coefficient Variation 13.4 % (11.7-14.2); RDW Standard Deviation 47.8 fL (35.1-46.3); Red Blood Cell Count 3.85 M/mm3 (4.30-5.90); White Blood Cell Count 7.06 K/mm3 (4.00-11.30)
[2023-01-14 09:04] LABS: Albumin/Globulin Ratio 0.8 (0.8-1.8); Bilirubin, Total 0.6 mg/dL (0.1-1.0); Calcium, Blood 8.4 mg/dL (8.5-10.1); Creatinine, Blood 1.72 mg/dL (0.60-1.20); Globulin, Blood 3.8 g/dL (2.2-4.0); Potassium, Blood 3.9 mmol/L (3.5-5.5); Total Protein, Blood 6.8 g/dL (6.4-8.2)
[2023-01-14 11:13] LABS: Source, Urine Clean Catch
[2023-01-14 11:25] LABS: Appearance, Urine Clear (Clear); Bilirubin, Urine Neg (Neg); Blood, Urine 1+ (Neg); Color, Urine Yellow (P-Yellow); Glucose Qualitative, Urine 3+ (Neg); Ketones, Urine Neg (Neg); Leukocyte Esterase, Urine Neg (Neg); Nitrite, Urine Neg (Neg); Protein, Urine 2+ (Neg); Urobilinogen, Urine NORM (Normal)
[2023-01-14 11:54] LABS: Red Blood Cells, Urine 0-2 /hpf (0-2); Squamous Epithelial Cells Rare /hpf (Few); White Blood Cells, Urine 0-2 /hpf (0-5)
[2023-01-14 11:55] LABS: Bacteria Mod /hpf; Mucus Light (0-Heavy)
[2023-01-14 13:00] VITALS: BP 129/53
== END 2023-01-14 13:45 | disposition home or self-care (01) ==
LOC: ER 08:15
PROVIDERS: Student in an Organized Health Care Education/Training Program
DX: E86.0 Dehydration (principal); I48.20 Chronic atrial fibrillation, unspecified; E11.22 Type 2 diabetes mellitus with diabetic chronic kidney disease; M10.9 Gout, unspecified; I12.9 Hypertensive chronic kidney disease with stage 1 through stage 4 chronic kidney disease, or unspecified chronic kidney disease; N18.30 Chronic kidney disease, stage 3 unspecified; K21.9 Gastro-esophageal reflux disease without esophagitis; Z79.899 Other long term (current) drug therapy; Z79.4 Long term (current) use of insulin; Z79.82 Long term (current) use of aspirin
CPT/HCPCS: 51701; 51798; 71045; 80053; 81001; 82947; 85025; 87077; 87086; 87186; 93005; 93010; 96360-59; 99285-25; A9270; J7030

== ENCOUNTER 2023-01-18 13:50 | Emergency (ER) | payer MEDICARE ==
[~2023-01-18] VITALS: Ht 177.8 cm; Wt 95.2 kg
[2023-01-18 16:34] LABS: BASOPHILS ABSOLUTE AUTO 0.03 K/mm3 (0.00-0.23); BASOPHILS PERCENT AUTO 0 % (0-2); EOSINOPHILS ABSOLUTE AUTO 0.13 K/mm3 (0.00-0.68); EOSINOPHILS PERCENT AUTO 1 % (0-6); Hematocrit 38.6 % (37.0-53.0); Hemoglobin 12.4 g/dL (13.5-17.5); IMMATURE GRAN ABSOLUTE AUTO 0.04 K/mm3 (0.00-0.10); IMMATURE GRAN PERCENT AUTO 0 % (0-1); LYMPHOCYTES ABSOLUTE AUTO 1.12 K/mm3 (0.84-5.20); LYMPHOCYTES PERCENT AUTO 10 % (21-46); MONOCYTES PERCENT AUTO 8 % (4-13); Mean Corpuscular HGB 31.8 pg (26.0-34.0); Mean Corpuscular HGB Conc 32.1 g/dL (31.5-36.5); Mean Corpuscular Volume 99 fL (80-100); Mean Platelet Volume 11.6 fL (9.1-12.4); NEUTROPHILS ABSOLUTE AUTO 8.76 K/mm3 (1.96-9.15); NEUTROPHILS PERCENT AUTO 80 % (41-73); Platelet Count 210 K/mm3 (150-400); RDW Coefficient Variation 13.8 % (11.7-14.2); RDW Standard Deviation 50.4 fL (35.1-46.3); White Blood Cell Count 10.98 K/mm3 (4.00-11.30)
[2023-01-18 16:56] LABS: Albumin, Blood 2.9 g/dL (3.4-5.0); Albumin/Globulin Ratio 0.8 (0.8-1.8); Bilirubin, Total 0.6 mg/dL (0.1-1.0); Bun/Creatinine Ratio 18.6 (12.0-20.0); Calcium, Blood 8.5 mg/dL (8.5-10.1); Creatinine, Blood 1.67 mg/dL (0.60-1.20); Globulin, Blood 3.8 g/dL (2.2-4.0); Potassium, Blood 4.2 mmol/L (3.5-5.5); Total Protein, Blood 6.7 g/dL (6.4-8.2)
[2023-01-18] MEDS ORDERED: HUMALOG100 UNIT/1 SC (17:26)
[2023-01-18] MEDS ORDERED: BASAGLAR K100 UNIT/6 SC (17:28)
[2023-01-18] MEDS ORDERED: AMLO5 PO (17:29)
[2023-01-18] MEDS ORDERED: ASPI81CH PO (17:30)
[2023-01-18] MEDS ORDERED: ABILIFY MYCITE2 M2 PO (17:30)
[2023-01-18] MEDS ORDERED: ATOR20 PO (17:30)
[2023-01-18] MEDS ORDERED: COENZYME Q10100 MG PO (17:31)
[2023-01-18] MEDS ORDERED: MIRALAX17 GM PO (17:31)
[2023-01-18] MEDS ORDERED: FURO40 PO (17:32)
[2023-01-18] MEDS ORDERED: K-Dur10 MEQ (17:32)
[2023-01-18] MEDS ORDERED: ERGO400 PO (17:32)
[2023-01-18] MEDS ORDERED: XARELTO20 MG PO (17:32)
[2023-01-18] MEDS ORDERED: METO100 PO (17:33)
[2023-01-18] MEDS ORDERED: LATA.005SO BOTHEYES (17:34)
[2023-01-18] MEDS ORDERED: CEFP200 PO ×2 (18:08→20:11)
[2023-01-18 20:45] VITALS: BP 120/55
== END 2023-01-18 22:45 | disposition home or self-care (01) ==
LOC: ER 13:50
PROVIDERS: Physician Assistant
DX: N39.0 Urinary tract infection, site not specified (principal); F41.1 Generalized anxiety disorder; I12.9 Hypertensive chronic kidney disease with stage 1 through stage 4 chronic kidney disease, or unspecified chronic kidney disease; E11.22 Type 2 diabetes mellitus with diabetic chronic kidney disease; N18.30 Chronic kidney disease, stage 3 unspecified; F03.90 Unspecified dementia, unspecified severity, without behavioral disturbance, psychotic disturbance, mood disturbance, and anxiety; Z79.899 Other long term (current) drug therapy; Z79.82 Long term (current) use of aspirin; Z79.4 Long term (current) use of insulin; Z79.01 Long term (current) use of anticoagulants
CPT/HCPCS: 80053; 82947; 85025; 96374; 96375; 99285-25; A9270; J0696; J1885

== ENCOUNTER → 2023-01-24 | Outpatient (CLI) | payer MEDICARE ==
[~2023-01-24] MED LIST changes: +ASPI81CH PO; +BASAGLAR K100 UNIT/6 SC; +CEFP200 PO; +ERGO400 PO; +HUMALOG100 UNIT/1 SC; +K-Dur10 MEQ; +METO100 PO
[2023-01-24 13:46] LABS: BASOPHILS ABSOLUTE AUTO 0.04 K/mm3 (0.00-0.23); BASOPHILS PERCENT AUTO 0 % (0-2); EOSINOPHILS ABSOLUTE AUTO 0.06 K/mm3 (0.00-0.68); EOSINOPHILS PERCENT AUTO 1 % (0-6); Hematocrit 39.6 % (37.0-53.0); Hemoglobin 12.6 g/dL (13.5-17.5); IMMATURE GRAN ABSOLUTE AUTO 0.05 K/mm3 (0.00-0.10); IMMATURE GRAN PERCENT AUTO 1 % (0-1); LYMPHOCYTES ABSOLUTE AUTO 1.31 K/mm3 (0.84-5.20); LYMPHOCYTES PERCENT AUTO 13 % (21-46); MONOCYTES ABSOLUTE AUTO 0.83 K/mm3 (0.16-1.47); MONOCYTES PERCENT AUTO 8 % (4-13); Mean Corpuscular HGB 31.4 pg (26.0-34.0); Mean Corpuscular HGB Conc 31.8 g/dL (31.5-36.5); Mean Corpuscular Volume 99 fL (80-100); NEUTROPHILS ABSOLUTE AUTO 7.75 K/mm3 (1.96-9.15); NEUTROPHILS PERCENT AUTO 77 % (41-73); Platelet Count 294 K/mm3 (150-400); RDW Coefficient Variation 13.6 % (11.7-14.2); RDW Standard Deviation 49.8 fL (35.1-46.3); Red Blood Cell Count 4.01 M/mm3 (4.30-5.90); White Blood Cell Count 10.04 K/mm3 (4.00-11.30)
[2023-01-24 14:04] LABS: Albumin, Blood 2.6 g/dL (3.4-5.0); Albumin/Globulin Ratio 0.5 (0.8-1.8); Bilirubin, Total 0.5 mg/dL (0.1-1.0); Bun/Creatinine Ratio 18.9 (12.0-20.0); Calcium, Blood 8.7 mg/dL (8.5-10.1); Creatinine, Blood 2.06 mg/dL (0.60-1.20); Globulin, Blood 4.8 g/dL (2.2-4.0); Potassium, Blood 3.7 mmol/L (3.5-5.5); Thyroid Stimulating Hormone 1.665 uIU/mL (0.360-4.800); Total Protein, Blood 7.4 g/dL (6.4-8.2)
== END | disposition home or self-care (01) ==
LOC: LAB 13:43 → LAB SHORT 13:43
PROVIDERS: Family Medicine
DX: N18.4 Chronic kidney disease, stage 4 (severe) (principal); R41.82 Altered mental status, unspecified
CPT/HCPCS: 80053; 84443; 85025